=== PATIENT | male | born 1985 | race Caucasian/White ===

== ENCOUNTER → 2016-10-12 | Outpatient (CLI) | payer BC | LOC: LAB 10:19 | PROVIDERS: Internal Medicine Nephrology | DX: N17.9 Acute kidney failure, unspecified (principal) | CPT/HCPCS: 36415; 80053; 82043; 82570 ==

== ENCOUNTER → 2016-10-14 | Outpatient (CLI) | payer BC ==
[2016-10-14 10:17] LABS: URINE CREATININE 96.7 mg/dL
== END ==
LOC: LBRF 09:04
PROVIDERS: Internal Medicine Nephrology
DX: N17.9 Acute kidney failure, unspecified (principal); M10.9 Gout, unspecified
CPT/HCPCS: 82570; 82575; 84550